=== PATIENT | male | born 1970 | race Caucasian/White ===

== ENCOUNTER 2021-08-17 06:52 | Inpatient (IN) ==
[~2021-08-17 06:52] MED LIST: ALVIMOPAN 12 MG CAPSULE PO ONE; ERTAPENEM 1,000 MG in SODIUM CHLORIDE 0.9% 100 ML IV ONE
[2021-08-17] MEDS ORDERED: FAMOTIDINE 20 MG TABLET PO ONE (07:32)
[2021-08-17] MEDS ORDERED: ACETAMINOPHEN 500 MG TABLET PO ONE (07:32)
[2021-08-17] MEDS ORDERED: GABAPENTIN 400 MG CAPSULE PO ONE (07:32)
[2021-08-17] MEDS ORDERED: DIAZEPAM 5 MG TABLET PO ONE (07:32)
[2021-08-17] MEDS ORDERED: LACTATED RINGERS 1,000 ML IV SCH (08:00)
[2021-08-17] MEDS ORDERED: fentaNYL 100 MCG/2 ML VIAL ONE ×3 (08:43→12:29)
[2021-08-17] MEDS ORDERED: MIDAZOLAM 2 MG/2 ML VIAL ONE ×3 (08:44→14:03)
[2021-08-17] MEDS ORDERED: SUCCINYLCHOLINE 200 MG/10 ML VIAL ONE (08:51)
[2021-08-17] MEDS ORDERED: ROCURONIUM 50 MG/5 ML VIAL IV ONE (08:51)
[2021-08-17] MEDS ORDERED: ONDANSETRON 4 MG/2 ML VIAL ONE (08:51)
[2021-08-17] MEDS ORDERED: propofoL 200 MG/20 ML VIAL IV ONE (08:51)
[2021-08-17] MEDS ORDERED: LIDOCAINE 2% 5 ML VIAL ONE (08:51)
[2021-08-17] MEDS ORDERED: BUPIVACAINE 0.5% 50 ML VIAL ONE (08:54)
[2021-08-17] MEDS ORDERED: DEXAMETHASONE 10 MG/1 ML VIAL ONE (08:54)
[2021-08-17] MEDS ORDERED: LIDOCAINE 1% 5 ML VIAL ONE (08:58)
[2021-08-17] MEDS ORDERED: BUPIVACAINE MPF 0.25% 10 ML VIAL ONE (09:25)
[2021-08-17] MEDS ORDERED: LIDOCAINE 1%/EPI INJ 20 ML VIAL ONE (09:26)
[2021-08-17] MEDS ORDERED: INDOCYANINE GREEN 25 MG VIAL IV ONE (09:26)
[2021-08-17] MEDS ORDERED: TISSUE ADHESIVE 1 EACH APPLICATOR TOP ONE (09:26)
[2021-08-17] MEDS ORDERED: LIDOCAINE 2% TOP JELLY 20 ML VIAL INTRAURETH ONE (09:26)
[2021-08-17] MEDS ORDERED: DESFLURANE 1 UNIT/15 MINUTE INH ONE (11:41)
[2021-08-17] MEDS ORDERED: LACTATED RINGERS 0 ML IV ONE (11:44)
[2021-08-17] MEDS ORDERED: PHENYLEPHRINE 1 MG/10 ML SYRINGE IV ONE (12:46)
[2021-08-17] MEDS ORDERED: PHENYLEPHRINE 10 MG/1 ML VIAL IV ONE (12:58)
[2021-08-17] MEDS ORDERED: SODIUM CHLORIDE 0.9% 1,000 ML IV PRN ×3 (13:21→15:22)
[2021-08-17] MEDS ORDERED: MINERAL OIL/PETROLATUM OPH OINT 3.5 GM TUBE ONE (14:08)
[2021-08-17] MEDS ORDERED: LACTATED RINGERS 1,000 ML IV ONE (14:21)
[2021-08-17] MEDS ORDERED: ONDANSETRON 4 MG/2 ML VIAL IV PRN (14:46)
[2021-08-17] MEDS ORDERED: PROMETHAZINE 25 MG/1 ML VIAL IM PRN (14:46)
[2021-08-17 14:54] LABS: Basophils # 0.2 10*3/uL (0.0-0.2); Basophils % 0.4 % (0.0-0.8); Eosinophils # 0.2 10*3/uL (0.0-0.87); Eosinophils % 0.4 % (0.00-10.9); Hematocrit 32.4 VOL% (42.0-52.0); Hemoglobin 9.9 GM/DL (14.0-18.0); Immature Granulocytes % 4.2 %; Immature Granulocytes Absolute 2.09 #; Lymphocytes # 2.6 10*3/uL (1.4-4.0); Lymphocytes % 5.1 % (21.2-54.2); Mean Corpuscular HGB Conc 30.6 GM/DL (32-36); Mean Corpuscular Volume 81.4 FL (87-102); Mean Platelet Volume 10.4 FL (9.6-12.0); Monocytes # 1.6 10*3/uL (0.11-0.8); Monocytes % 3.2 % (1.7-12.7); NRBC # 0.02 10*3/uL; Neutrophils % 86.7 % (38.7-73.9); Platelet Count 243 T/CUMM (130-400); Red Blood Count 3.98 MC/CUMM (3.8-5.5); Red Cell Distribution Width 23.9 % (9.3-17.3)
[2021-08-17 15:15] LABS: Bilirubin,Urine Negative (Negative); Blood, Urine Large mg/dL (Negative); Glucose,Urine (UA) >=1000 mg/dL (Negative); Ketones,Urine Negative (Negative); Nitrite,Urine Negative (Negative); Protein,Urine Negative (Negative); Urine Appearance Clear (Clear); Urine Color Yellow (Yellow); Urine Specific Gravity 1.015 (1.001-1.035); Urine Urobilinogen 0.2 eU/dL (<2.0); Urine pH 6.5 (4.5-8.0)
[2021-08-17 15:22] LABS: RBC,Urine 84 /HPF (0-4); Squamous Epithelial Cell,Urine Occasional /HPF (0-10)
[2021-08-17 15:32] LABS: ABG Base Excess -7.3 MMOL/L (-2.5-2.5); ABG HCO3 18.5 MMOL/L (20-26); ABG Oxygen Saturation 99.3 % (95-100); ABG PCO2 41.4 MM HG (35-48); ABG PH 7.275 (7.35-7.45); ABG TCO2 17.7 MMOL/L (23-27)
[2021-08-17 15:32] LABS: Calcium 7.7 MG/DL (8.5-10.1); Osmolality,Calculated 284.1 MOS/KG (273-304); Potassium 5.8 MMOL/L (3.5-5.1)
[2021-08-17] MEDS: LACTATED RINGERS 1,000 ML IV SCH ×2 (15:34→23:18)
[2021-08-17] MEDS: HYDROmorphone 1 MG/1 ML SYRINGE IV PRN ×2 (15:36→19:35)
[2021-08-17] MEDS ORDERED: GLUCAGON 1 MG VIAL IM PRN (15:41)
[2021-08-17] MEDS ORDERED: DEXTROSE 10% 250 ML BAG IV PRN (15:41)
[2021-08-17 15:50] LABS: INR 1.2; PT Patient Result 12.9 SECS (10.5-12.0); Partial Thromboplastin Time 25.8 SECS (23.7-32.9)
[2021-08-17] MEDS ORDERED: NOREPINEPHRINE 8 MG in SODIUM CHLORIDE 0.9% 242 ML IV PRN (15:51)
[2021-08-17 16:12] LABS: Anisocytosis 1+; Band Neutrophils 13 % (0-10); Eosinophils 1 % (0-10)
[2021-08-17 16:13] LABS: Polychromasia Slight
[2021-08-17 16:14] LABS: Hypochromia Slight; Ovalocytes Slight
[2021-08-17 16:15] LABS: Microcytosis 1+
[2021-08-17 16:16] LABS: Platelet Estimate Normal
[2021-08-17 16:17] LABS: Total Cells Counted 100
[2021-08-17 18:57] LABS: Basophils # 0.1 10*3/uL (0.0-0.2); Basophils % 0.2 % (0.0-0.8); Hematocrit 35.2 VOL% (42.0-52.0); Immature Granulocytes % 2.3 %; Immature Granulocytes Absolute 1.12 #; Lymphocytes # 0.8 10*3/uL (1.4-4.0); Lymphocytes % 1.7 % (21.2-54.2); Mean Corpuscular HGB Conc 31.3 GM/DL (32-36); Monocytes # 4.3 10*3/uL (0.11-0.8); Monocytes % 8.8 % (1.7-12.7); Platelet Count 284 T/CUMM (130-400); Red Cell Distribution Width 22.5 % (9.3-17.3)
[2021-08-17 18:59] LABS: White Blood Count 48.2 T/CUMM (4-12)
[2021-08-17] MEDS: INSULIN LISPRO 100 UNIT/ML SUBCUT SCH ×2 (19:10→22:59)
[2021-08-17 19:20] LABS: Band Neutrophils 8 % (0-10)
[2021-08-17 19:24] LABS: Platelet Estimate Increased; Polychromasia Few
[2021-08-17 19:25] LABS: Hypochromia Slight; Ovalocytes Slight
[2021-08-17 19:26] LABS: Total Cells Counted 100
[2021-08-17 22:57] LABS: Basophils % 0.1 % (0.0-0.8); Hematocrit 34.6 VOL% (42.0-52.0); Immature Granulocytes % 1.3 %; Immature Granulocytes Absolute 0.36 #; Lymphocytes # 0.6 10*3/uL (1.4-4.0); Lymphocytes % 2.3 % (21.2-54.2); Mean Corpuscular HGB Conc 31.8 GM/DL (32-36); Mean Corpuscular Volume 79.2 FL (87-102); Mean Platelet Volume 9.9 FL (9.6-12.0); Monocytes # 2.3 10*3/uL (0.11-0.8); Neutrophils % 88.3 % (38.7-73.9); Platelet Count 169 T/CUMM (130-400); Red Blood Count 4.37 MC/CUMM (3.8-5.5); Red Cell Distribution Width 21.1 % (9.3-17.3); White Blood Count 28.4 T/CUMM (4-12)
[2021-08-17 23:18] LABS: Total Cells Counted 100
[2021-08-17 23:19] LABS: Anisocytosis Slight; Platelet Estimate Adequate
[2021-08-18] MEDS: INSULIN LISPRO 100 UNIT/ML SUBCUT SCH ×6 (01:15→20:17)
[2021-08-18] MEDS: HYDROmorphone 1 MG/1 ML SYRINGE IV PRN ×3 (03:40→17:00)
[2021-08-18 04:08] LABS: Basophils % 0.1 % (0.0-0.8); Hemoglobin 10.5 GM/DL (14.0-18.0); Immature Granulocytes Absolute 0.21 #; Lymphocytes # 0.8 10*3/uL (1.4-4.0); Lymphocytes % 3.9 % (21.2-54.2); Mean Corpuscular HGB Conc 31.8 GM/DL (32-36); Mean Corpuscular Volume 79.1 FL (87-102); Mean Platelet Volume 9.9 FL (9.6-12.0); Monocytes # 2.2 10*3/uL (0.11-0.8); Monocytes % 10.8 % (1.7-12.7); Neutrophils % 84.2 % (38.7-73.9); Platelet Count 148 T/CUMM (130-400); Red Blood Count 4.17 MC/CUMM (3.8-5.5); Red Cell Distribution Width 21.3 % (9.3-17.3); White Blood Count 20.5 T/CUMM (4-12)
[2021-08-18 04:12] LABS: ABG Base Excess -1.3 MMOL/L (-2.5-2.5); ABG HCO3 23.4 MMOL/L (20-26); ABG Oxygen Saturation 99.7 % (95-100); ABG PCO2 42.3 MM HG (35-48); ABG PH 7.364 (7.35-7.45); ABG TCO2 21.9 MMOL/L (23-27)
[2021-08-18 04:25] LABS: Albumin 2.5 G/DL (3.4-5.0); Bilirubin,Total 0.9 MG/DL (0.20-1.00); Calcium 7.4 MG/DL (8.5-10.1); Osmolality,Calculated 293.1 MOS/KG (273-304); Total Protein 6.3 G/DL (6.4-8.2)
[2021-08-18 04:26] LABS: Anisocytosis 1+; Hypochromia 1+; Lymphocytes 4 % (20-55); Microcytosis 1+; Nucleated Red Blood Cells 1 (0-5); Total Cells Counted 100
[2021-08-18 04:27] LABS: Platelet Estimate Adequate; Polychromasia Slight
[2021-08-18] MEDS: PANTOPRAZOLE 40 MG VIAL IV SCH (05:20)
[2021-08-18] MEDS: LACTATED RINGERS 1,000 ML IV SCH ×2 (07:16→07:18)
[2021-08-18] MEDS: ESCITALOPRAM 10 MG TABLET PO SCH ×2 (08:41→13:28)
[2021-08-18] MEDS: INSULIN GLARGINE 100 UNIT/ML SUBCUT SCH (08:42)
[2021-08-18] MEDS ORDERED: LACTATED RINGERS 1,000 ML IV SCH (15:00)
[2021-08-19] MEDS: HYDROmorphone 1 MG/1 ML SYRINGE IV PRN ×4 (02:44→21:38)
[2021-08-19] MEDS: PANTOPRAZOLE 40 MG VIAL IV SCH (05:55)
[2021-08-19 06:49] LABS: Basophils % 0.1 % (0.0-0.8); Eosinophils % 0.1 % (0.00-10.9); Hematocrit 27.8 VOL% (42.0-52.0); Hemoglobin 8.8 GM/DL (14.0-18.0); Immature Granulocytes Absolute 0.14 #; Lymphocytes % 7.3 % (21.2-54.2); Mean Corpuscular HGB Conc 31.7 GM/DL (32-36); Mean Corpuscular Volume 79.9 FL (87-102); Mean Platelet Volume 10.2 FL (9.6-12.0); Monocytes # 1.2 10*3/uL (0.11-0.8); Neutrophils % 82.5 % (38.7-73.9); Red Blood Count 3.48 MC/CUMM (3.8-5.5); Red Cell Distribution Width 21.4 % (9.3-17.3)
[2021-08-19 06:53] LABS: White Blood Count 13.6 T/CUMM (4-12)
[2021-08-19 06:54] LABS: Platelet Count 105 T/CUMM (130-400)
[2021-08-19 07:04] LABS: Albumin 2.4 G/DL (3.4-5.0); Osmolality,Calculated 282.5 MOS/KG (273-304); Potassium 4.1 MMOL/L (3.5-5.1); Total Protein 5.8 G/DL (6.4-8.2)
[2021-08-19] MEDS: INSULIN LISPRO 100 UNIT/ML SUBCUT SCH ×4 (08:30→21:37)
[2021-08-19] MEDS: INSULIN GLARGINE 100 UNIT/ML SUBCUT SCH (08:42)
[2021-08-19] MEDS: FAMOTIDINE 8 MG/ML 50 ML/BOTTLE PO SCH ×2 (08:42→21:37)
[2021-08-19] MEDS: ESCITALOPRAM 10 MG TABLET PO SCH (08:42)
[2021-08-19] MEDS: TAMSULOSIN 0.4 MG CAPSULE PO SCH (21:36)
[2021-08-20] MEDS: HYDROmorphone 1 MG/1 ML SYRINGE IV PRN ×6 (00:40→21:24)
[2021-08-20 04:41] LABS: Basophils % 0.3 % (0.0-0.8); Eosinophils # 0.1 10*3/uL (0.0-0.87); Eosinophils % 0.8 % (0.00-10.9); Hematocrit 27.8 VOL% (42.0-52.0); Hemoglobin 8.5 GM/DL (14.0-18.0); Immature Granulocytes Absolute 0.12 #; Lymphocytes # 0.9 10*3/uL (1.4-4.0); Lymphocytes % 7.9 % (21.2-54.2); Mean Corpuscular HGB Conc 30.6 GM/DL (32-36); Mean Corpuscular Volume 81.3 FL (87-102); Mean Platelet Volume 9.8 FL (9.6-12.0); Monocytes % 8.8 % (1.7-12.7); Neutrophils % 81.2 % (38.7-73.9); Platelet Count 96 T/CUMM (130-400); Red Blood Count 3.42 MC/CUMM (3.8-5.5); Red Cell Distribution Width 21.1 % (9.3-17.3); White Blood Count 11.6 T/CUMM (4-12)
[2021-08-20 05:00] LABS: Albumin 2.5 G/DL (3.4-5.0); Bilirubin,Total 1.1 MG/DL (0.20-1.00); Calcium 7.4 MG/DL (8.5-10.1); Osmolality,Calculated 278.8 MOS/KG (273-304)
[2021-08-20 05:06] LABS: Platelet Estimate Decreased
[2021-08-20] MEDS: FAMOTIDINE 8 MG/ML 50 ML/BOTTLE PO SCH (08:38)
[2021-08-20] MEDS: INSULIN LISPRO 100 UNIT/ML SUBCUT SCH ×4 (08:39→22:35)
[2021-08-20] MEDS: ESCITALOPRAM 10 MG TABLET PO SCH (08:39)
[2021-08-20] MEDS: INSULIN GLARGINE 100 UNIT/ML SUBCUT SCH (08:39)
[2021-08-20] MEDS ORDERED: LIDOCAINE 2% TOP JELLY 20 ML VIAL INTRAURETH PRN (18:59)
[2021-08-20] MEDS: TAMSULOSIN 0.4 MG CAPSULE PO SCH (21:23)
[2021-08-20] MEDS: FAMOTIDINE 20 MG TABLET PO SCH (21:23)
[2021-08-21] MEDS: HYDROmorphone 1 MG/1 ML SYRINGE IV PRN (04:53)
[2021-08-21 05:32] LABS: Basophils % 0.2 % (0.0-0.8); Eosinophils # 0.1 10*3/uL (0.0-0.87); Eosinophils % 1.6 % (0.00-10.9); Hematocrit 27.2 VOL% (42.0-52.0); Hemoglobin 8.5 GM/DL (14.0-18.0); Immature Granulocytes % 1.2 %; Lymphocytes # 0.8 10*3/uL (1.4-4.0); Lymphocytes % 9.1 % (21.2-54.2); Mean Corpuscular HGB Conc 31.3 GM/DL (32-36); Mean Corpuscular Volume 80.5 FL (87-102); Mean Platelet Volume 10.3 FL (9.6-12.0); Monocytes # 0.8 10*3/uL (0.11-0.8); Monocytes % 8.8 % (1.7-12.7); Neutrophils % 79.1 % (38.7-73.9); Platelet Count 95 T/CUMM (130-400); Red Blood Count 3.38 MC/CUMM (3.8-5.5); Red Cell Distribution Width 21.1 % (9.3-17.3); White Blood Count 8.6 T/CUMM (4-12)
[2021-08-21 05:50] LABS: INR 1.1; PT Patient Result 12.1 SECS (10.5-12.0); Partial Thromboplastin Time 25.6 SECS (23.7-32.9)
[2021-08-21 05:55] LABS: Albumin 2.5 G/DL (3.4-5.0); Calcium 7.9 MG/DL (8.5-10.1); Osmolality,Calculated 277.7 MOS/KG (273-304); Potassium 3.7 MMOL/L (3.5-5.1)
[2021-08-21 08:04] VITALS: BP 138/69
[2021-08-21] MEDS: ESCITALOPRAM 10 MG TABLET PO SCH (08:36)
[2021-08-21] MEDS: FAMOTIDINE 20 MG TABLET PO SCH (08:36)
[2021-08-21] MEDS: INSULIN GLARGINE 100 UNIT/ML SUBCUT SCH (08:37)
[2021-08-21] MEDS: INSULIN LISPRO 100 UNIT/ML SUBCUT SCH ×2 (08:37→11:33)
== END 2021-08-21 12:32 | disposition home or self-care (01) | DRG 356 ==
LOC: N.SDSINP 06:52 → N.OR 06:52 → N.SDSINP 06:54 → N.ICU 14:13 → N.3E 08-19 15:50
PROVIDERS: ADMIT Surgery; ATTEND Surgery

== ENCOUNTER 2021-10-12 06:12 | Inpatient (IN) ==
[2021-10-07 12:59] LABS: INR 1.1; PT Patient Result 11.9 SECS (10.1-12.1)
[2021-10-07 13:08] LABS: Albumin 3.7 G/DL (3.4-5.0); Bilirubin,Direct 0.18 MG/DL (0.0-0.20); Bilirubin,Indirect 0.4 MG/DL (0.0-1.0); Bilirubin,Total 0.6 MG/DL (0.20-1.00); Calcium 9.2 MG/DL (8.5-10.1); Osmolality,Calculated 284.4 MOS/KG (273-304); Potassium 4.3 MMOL/L (3.5-5.1); Total Protein 7.9 G/DL (6.4-8.2)
[2021-10-07 13:10] LABS: Basophils % 0.3 % (0.0-0.8); Eosinophils # 0.2 10*3/uL (0.0-0.87); Eosinophils % 4.9 % (0.00-10.9); Hematocrit 31.2 VOL% (42.0-52.0); Hemoglobin 8.8 GM/DL (14.0-18.0); Immature Granulocytes % 0.3 %; Immature Granulocytes Absolute 0.01 #; Lymphocytes # 0.6 10*3/uL (1.4-4.0); Lymphocytes % 18.5 % (21.2-54.2); Mean Corpuscular HGB Conc 28.2 GM/DL (32-36); Mean Corpuscular Volume 72.2 FL (87-102); Mean Platelet Volume 10.9 FL (9.6-12.0); Monocytes # 0.3 10*3/uL (0.11-0.8); Monocytes % 9.9 % (1.7-12.7); Neutrophils % 66.1 % (38.7-73.9); Platelet Count 141 T/CUMM (130-400); Red Blood Count 4.32 MC/CUMM (3.8-5.5); Red Cell Distribution Width 18.1 % (9.3-17.3); White Blood Count 3.2 T/CUMM (4-12)
[2021-10-12] MEDS ORDERED: LACTATED RINGERS 1,000 ML IV SCH (07:00)
[2021-10-12] MEDS ORDERED: ACETAMINOPHEN 500 MG TABLET PO ONE (07:12)
[2021-10-12] MEDS ORDERED: FAMOTIDINE 20 MG TABLET PO ONE (07:12)
[2021-10-12] MEDS ORDERED: DIAZEPAM 5 MG TABLET PO ONE (07:12)
[2021-10-12] MEDS ORDERED: GABAPENTIN 400 MG CAPSULE PO ONE (07:12)
[2021-10-12] MEDS ORDERED: DEXAMETHASONE 4 MG/1 ML VIAL ONE (09:21)
[2021-10-12] MEDS ORDERED: MIDAZOLAM 2 MG/2 ML VIAL ONE (09:21)
[2021-10-12] MEDS ORDERED: fentaNYL 100 MCG/2 ML VIAL ONE ×6 (09:21→14:11)
[2021-10-12] MEDS ORDERED: ROPIVACAINE 0.5% 30 ML VIAL ONE (09:22)
[2021-10-12] MEDS ORDERED: LIDOCAINE 1% 5 ML VIAL ONE (09:22)
[2021-10-12] MEDS ORDERED: ALBUMIN 5% 25.0 GM/500 ML VIAL IV ONE (09:47)
[2021-10-12] MEDS ORDERED: propofoL 200 MG/20 ML VIAL IV ONE (09:52)
[2021-10-12] MEDS ORDERED: SUCCINYLCHOLINE 200 MG/10 ML VIAL ONE (09:52)
[2021-10-12] MEDS ORDERED: ROCURONIUM 50 MG/5 ML VIAL IV ONE ×3 (09:52→13:23)
[2021-10-12] MEDS ORDERED: LIDOCAINE 2% 5 ML VIAL ONE (09:52)
[2021-10-12] MEDS ORDERED: SODIUM CHLORIDE 0.9% 1,000 ML IV PRN (10:39)
[2021-10-12] MEDS ORDERED: PHENYLEPHRINE 1 MG/10 ML SYRINGE IV ONE (11:37)
[2021-10-12] MEDS ORDERED: SODIUM CHLORIDE 0.9% 1,000 ML IV ONE (11:40)
[2021-10-12] MEDS ORDERED: LACTATED RINGERS 1,000 ML IV ONE (11:40)
[2021-10-12] MEDS ORDERED: NEOSTIGMINE 10 MG/10 ML VIAL ONE (11:51)
[2021-10-12] MEDS ORDERED: GLYCOPYRROLATE 0.4 MG/2 ML VIAL ONE (11:51)
[2021-10-12] MEDS ORDERED: ONDANSETRON 4 MG/2 ML VIAL ONE ×2 (11:53→15:29)
[2021-10-12] MEDS ORDERED: PNEUMOCOCCAL VACCINE (23 VALENT) 0.5 ML VIAL IM ONE (12:58)
[2021-10-12] MEDS ORDERED: PHENYLEPHRINE DRIP 20 MG/250 ML PREMIX IV ONE (13:03)
[2021-10-12] MEDS ORDERED: ACETAMINOPHEN INJ 1,000 MG/100 ML VIAL IV ONE (14:00)
[2021-10-12] MEDS ORDERED: SUGAMMADEX 200 MG/2 ML VIAL IV ONE (14:06)
[2021-10-12 14:13] LABS: Mucus,Urine Occasional /LPF (Occasional); RBC,Urine 2 /HPF (0-4); Squamous Epithelial Cell,Urine Occasional /HPF (0-10)
[2021-10-12 14:14] LABS: Urine Appearance Clear (Clear); Urine Color Yellow (Yellow)
[2021-10-12 14:15] LABS: Bilirubin,Urine Negative (Negative); Blood, Urine Negative (Negative); Glucose,Urine (UA) >=1000 mg/dL (Negative); Ketones,Urine Negative (Negative); Nitrite,Urine Negative (Negative); Protein,Urine Trace mg/dL (Negative); Urine Specific Gravity 1.015 (1.001-1.035); Urine Urobilinogen 0.2 eU/dL (<2.0)
[2021-10-12] MEDS ORDERED: HYDROmorphone 1 MG/1 ML SYRINGE ONE (15:29)
[2021-10-12] MEDS ORDERED: LABETALOL 20 MG/4 ML SYRINGE IV ONE (15:29)
[2021-10-12] MEDS: HYDROmorphone 1 MG/1 ML SYRINGE IV PRN ×2 (15:31→16:16)
[2021-10-12] MEDS ORDERED: ONDANSETRON 4 MG/2 ML VIAL IV PRN ×2 (15:34→17:00)
[2021-10-12] MEDS ORDERED: ONDANSETRON 4 MG TABLET PO PRN (17:00)
[2021-10-12] MEDS ORDERED: PROMETHAZINE 25 MG TABLET PO PRN (17:00)
[2021-10-12] MEDS ORDERED: PROMETHAZINE 25 MG/1 ML VIAL IM PRN (17:00)
[2021-10-12] MEDS ORDERED: GLUCAGON 1 MG VIAL IM PRN (17:00)
[2021-10-12] MEDS ORDERED: DEXTROSE 10% 250 ML BAG IV PRN (17:08)
[2021-10-12] MEDS: INSULIN REGULAR 100 UNIT/ML SUBCUT SCH ×2 (17:13→21:19)
[2021-10-12] MEDS: KETOROLAC 15 MG/1 ML VIAL IV SCH ×2 (17:45→23:40)
[2021-10-12 18:11] LABS: Albumin 3.2 G/DL (3.4-5.0); Calcium 7.8 MG/DL (8.5-10.1); Osmolality,Calculated 283.7 MOS/KG (273-304); Potassium 5.3 MMOL/L (3.5-5.1); Total Protein 7.2 G/DL (6.4-8.2)
[2021-10-12 18:15] LABS: Basophils % 0.1 % (0.0-0.8); Eosinophils % 0.1 % (0.00-10.9); Hematocrit 29.6 VOL% (42.0-52.0); Immature Granulocytes % 0.4 %; Immature Granulocytes Absolute 0.03 #; Lymphocytes # 0.3 10*3/uL (1.4-4.0); Lymphocytes % 3.9 % (21.2-54.2); Mean Platelet Volume 10.2 FL (9.6-12.0); Monocytes # 0.5 10*3/uL (0.11-0.8); Monocytes % 6.4 % (1.7-12.7); Neutrophils % 89.1 % (38.7-73.9); Platelet Count 158 T/CUMM (130-400); Red Blood Count 4.11 MC/CUMM (3.8-5.5); Red Cell Distribution Width 18.1 % (9.3-17.3); White Blood Count 8.1 T/CUMM (4-12)
[2021-10-12 18:20] LABS: Hemoglobin 8.3 GM/DL (14.0-18.0)
[2021-10-12 19:33] LABS: Band Neutrophils 2 % (0-10); Lymphocytes 2 % (20-55); Platelet Estimate Adequate; Total Cells Counted 100
[2021-10-12 19:34] LABS: Microcytosis Slight; Polychromasia Slight
[2021-10-12] MEDS ORDERED: ALVIMOPAN 12 MG CAPSULE PO SCH (21:00)
[2021-10-12] MEDS: DOCUSATE SODIUM 100 MG CAPSULE PO SCH (21:18)
[2021-10-12] MEDS: LACTATED RINGERS 1,000 ML IV SCH (21:18)
[2021-10-13 04:42] LABS: Basophils % 0.1 % (0.0-0.8); Hemoglobin 7.4 GM/DL (14.0-18.0); Immature Granulocytes % 0.3 %; Immature Granulocytes Absolute 0.03 #; Lymphocytes # 0.6 10*3/uL (1.4-4.0); Lymphocytes % 6.5 % (21.2-54.2); Mean Corpuscular HGB Conc 27.7 GM/DL (32-36); Mean Platelet Volume 10.2 FL (9.6-12.0); Monocytes % 10.7 % (1.7-12.7); Neutrophils % 82.4 % (38.7-73.9); Platelet Count 145 T/CUMM (130-400); Red Blood Count 3.61 MC/CUMM (3.8-5.5); White Blood Count 9.5 T/CUMM (4-12)
[2021-10-13 05:04] LABS: Albumin 2.8 G/DL (3.4-5.0); Bilirubin,Total 0.9 MG/DL (0.20-1.00); Calcium 7.6 MG/DL (8.5-10.1); Osmolality,Calculated 285.5 MOS/KG (273-304); Potassium 4.1 MMOL/L (3.5-5.1); Total Protein 6.5 G/DL (6.4-8.2)
[2021-10-13] MEDS: LACTATED RINGERS 1,000 ML IV SCH (05:16)
[2021-10-13] MEDS: KETOROLAC 15 MG/1 ML VIAL IV SCH ×4 (05:16→23:35)
[2021-10-13 05:17] LABS: Hypochromia Slight; Microcytosis Slight
[2021-10-13 05:27] LABS: Hematocrit 26.7 VOL% (42.0-52.0)
[2021-10-13] MEDS: DOCUSATE SODIUM 100 MG CAPSULE PO SCH ×2 (10:17→22:15)
[2021-10-13] MEDS: ESCITALOPRAM 10 MG TABLET PO SCH (10:17)
[2021-10-13] MEDS: INSULIN REGULAR 100 UNIT/ML SUBCUT SCH ×4 (10:17→22:15)
[2021-10-13] MEDS: ENOXAPARIN 40 MG/0.4 ML SYRINGE SUBCUT SCH (10:18)
[2021-10-13] MEDS: HYDROmorphone 1 MG/1 ML SYRINGE IV PRN (15:33)
[2021-10-14] MEDS: KETOROLAC 15 MG/1 ML VIAL IV SCH ×3 (04:28→16:47)
[2021-10-14 05:23] LABS: Albumin 2.8 G/DL (3.4-5.0); Potassium 3.9 MMOL/L (3.5-5.1); Total Protein 6.5 G/DL (6.4-8.2)
[2021-10-14 05:31] LABS: Basophils % 0.1 % (0.0-0.8); Eosinophils # 0.1 10*3/uL (0.0-0.87); Eosinophils % 2.1 % (0.00-10.9); Hemoglobin 7.5 GM/DL (14.0-18.0); Immature Granulocytes % 0.3 %; Immature Granulocytes Absolute 0.02 #; Lymphocytes # 0.5 10*3/uL (1.4-4.0); Lymphocytes % 6.8 % (21.2-54.2); Mean Corpuscular HGB Conc 27.6 GM/DL (32-36); Mean Corpuscular Volume 72.3 FL (87-102); Monocytes # 0.7 10*3/uL (0.11-0.8); Neutrophils % 80.7 % (38.7-73.9); Platelet Count 121 T/CUMM (130-400); Red Blood Count 3.76 MC/CUMM (3.8-5.5); Red Cell Distribution Width 18.4 % (9.3-17.3); White Blood Count 6.8 T/CUMM (4-12)
[2021-10-14 05:32] LABS: Hematocrit 27.2 VOL% (42.0-52.0)
[2021-10-14 05:47] LABS: Hypochromia 1+
[2021-10-14 05:48] LABS: Microcytosis 1+; Ovalocytes Slight; Platelet Estimate Adequate; Polychromasia Slight
[2021-10-14] MEDS: HYDROmorphone 1 MG/1 ML SYRINGE IV PRN (07:53)
[2021-10-14] MEDS: ESCITALOPRAM 10 MG TABLET PO SCH (08:32)
[2021-10-14] MEDS: DOCUSATE SODIUM 100 MG CAPSULE PO SCH ×2 (08:32→21:31)
[2021-10-14] MEDS: INSULIN REGULAR 100 UNIT/ML SUBCUT SCH ×4 (08:35→21:32)
[2021-10-14] MEDS: ENOXAPARIN 40 MG/0.4 ML SYRINGE SUBCUT SCH (08:36)
[2021-10-15] MEDS: KETOROLAC 15 MG/1 ML VIAL IV SCH ×3 (00:06→10:22)
[2021-10-15] MEDS: TAMSULOSIN 0.4 MG CAPSULE PO SCH ×2 (10:28→20:30)
[2021-10-15] MEDS: ESCITALOPRAM 10 MG TABLET PO SCH (10:29)
[2021-10-15] MEDS: DOCUSATE SODIUM 100 MG CAPSULE PO SCH ×2 (10:29→20:30)
[2021-10-15] MEDS: ENOXAPARIN 40 MG/0.4 ML SYRINGE SUBCUT SCH (10:30)
[2021-10-15] MEDS: INSULIN REGULAR 100 UNIT/ML SUBCUT SCH ×4 (10:33→20:34)
[2021-10-15 16:44] LABS: RBC,Urine 1 /HPF (0-4); Squamous Epithelial Cell,Urine Occasional /HPF (0-10)
[2021-10-15 16:47] LABS: Glucose,Urine (UA) 100 mg/dL (Negative); Ketones,Urine Trace mg/dL (Negative); Nitrite,Urine Negative (Negative); Protein,Urine Negative (Negative); Urine Appearance Clear (Clear); Urine Color Yellow (Yellow)
[2021-10-15 16:48] LABS: Bilirubin,Urine Negative (Negative); Blood, Urine Trace mg/dL (Negative)
[2021-10-15] MEDS: HYDROmorphone 1 MG/1 ML SYRINGE IV PRN (20:45)
[2021-10-16] MEDS: HYDROmorphone 1 MG/1 ML SYRINGE IV PRN (07:50)
[2021-10-16] MEDS: INSULIN REGULAR 100 UNIT/ML SUBCUT SCH (08:33)
[2021-10-16] MEDS: TAMSULOSIN 0.4 MG CAPSULE PO SCH (09:23)
[2021-10-16] MEDS: DOCUSATE SODIUM 100 MG CAPSULE PO SCH (09:23)
[2021-10-16] MEDS: ESCITALOPRAM 10 MG TABLET PO SCH (09:23)
[2021-10-16] MEDS: ENOXAPARIN 40 MG/0.4 ML SYRINGE SUBCUT SCH (09:24)
[2021-10-16 11:42] VITALS: BP 117/59
== END 2021-10-16 12:40 | disposition home health service (06) | DRG 330 ==
LOC: N.OR 06:12 → N.SDSINP 06:13 → N.TELES 14:41
PROVIDERS: ADMIT Surgery; ATTEND Surgery

== ENCOUNTER 2021-10-19 09:26 | Inpatient (IN) ==
[2021-10-19] MEDS ORDERED: ONDANSETRON 4 MG/2 ML VIAL IV STA (09:44)
[2021-10-19] MEDS ORDERED: HYDROmorphone 1 MG/1 ML SYRINGE IV STA (09:44)
[2021-10-19] MEDS ORDERED: SODIUM CHLORIDE 0.9% 1,000 ML IV STA (09:44)
[2021-10-19] MEDS ORDERED: PIPERACILLIN/TAZOBACTAM 3,375 MG in SODIUM CHLORIDE 0.9% 100 ML IV STA (09:48)
[2021-10-19] MEDS ORDERED: SODIUM CHLORIDE 0.9% 3,550 ML IV ONE (10:33)
[2021-10-19 10:35] LABS: Albumin 2.4 G/DL (3.4-5.0); Bilirubin,Total 1.1 MG/DL (0.20-1.00); Calcium 7.9 MG/DL (8.5-10.1); Osmolality,Calculated 274.2 MOS/KG (273-304); Potassium 3.6 MMOL/L (3.5-5.1); Total Protein 6.7 G/DL (6.4-8.2)
[2021-10-19 10:39] LABS: Basophils % 0.2 % (0.0-0.8); Eosinophils # 0.1 10*3/uL (0.0-0.87); Eosinophils % 0.9 % (0.00-10.9); Hematocrit 29.8 VOL% (42.0-52.0); Hemoglobin 8.4 GM/DL (14.0-18.0); Immature Granulocytes % 0.7 %; Immature Granulocytes Absolute 0.06 #; Lymphocytes # 0.5 10*3/uL (1.4-4.0); Lymphocytes % 6.2 % (21.2-54.2); Mean Corpuscular HGB Conc 28.2 GM/DL (32-36); Mean Corpuscular Volume 69.8 FL (87-102); Mean Platelet Volume 10.8 FL (9.6-12.0); Monocytes # 0.5 10*3/uL (0.11-0.8); Monocytes % 6.1 % (1.7-12.7); NRBC # 0.03 10*3/uL; Neutrophils % 85.9 % (38.7-73.9); Platelet Count 223 T/CUMM (130-400); Red Blood Count 4.27 MC/CUMM (3.8-5.5); Red Cell Distribution Width 18.9 % (9.3-17.3); White Blood Count 8.6 T/CUMM (4-12)
[2021-10-19] MEDS ORDERED: ACETAMINOPHEN 325 MG TABLET PO PRN (11:23)
[2021-10-19] MEDS ORDERED: ALBUTEROL/IPRATROPIUM 3 ML NEB RESP TX PRN (11:23)
[2021-10-19] MEDS ORDERED: GLUCAGON 1 MG VIAL IM PRN (11:32)
[2021-10-19 11:36] LABS: Platelet Estimate Normal
[2021-10-19 11:37] LABS: Anisocytosis 1+; Burr Cells Few; Hypochromia Slight
[2021-10-19] MEDS ORDERED: DEXTROSE 10% 250 ML BAG IV PRN (11:37)
[2021-10-19 11:51] LABS: INR 1.2; PT Patient Result 13.3 SECS (10.1-12.1); Partial Thromboplastin Time 26.4 SECS (23.7-32.9)
[2021-10-19] MEDS: HYDROmorphone 1 MG/1 ML SYRINGE IV PRN ×2 (15:08→21:17)
[2021-10-19] MEDS: LACTATED RINGERS 1,000 ML IV SCH ×2 (16:43→16:44)
[2021-10-19] MEDS: PIPERACILLIN/TAZOBACTAM 3,375 MG in SODIUM CHLORIDE 0.9% 100 ML IV SCH ×2 (16:44→21:17)
[2021-10-19] MEDS: INSULIN LISPRO 100 UNIT/ML SUBCUT SCH ×2 (17:03→21:17)
[2021-10-19] MEDS: TAMSULOSIN 0.4 MG CAPSULE PO SCH (21:11)
[2021-10-20] MEDS: KETOROLAC 30 MG/1 ML VIAL IV PRN (02:34)
[2021-10-20] MEDS: PIPERACILLIN/TAZOBACTAM 3,375 MG in SODIUM CHLORIDE 0.9% 100 ML IV SCH ×3 (03:25→22:52)
[2021-10-20 07:20] LABS: Albumin 2.1 G/DL (3.4-5.0); Bilirubin,Total 1.1 MG/DL (0.20-1.00); Calcium 7.9 MG/DL (8.5-10.1); Osmolality,Calculated 269.4 MOS/KG (273-304); Potassium 4.1 MMOL/L (3.5-5.1)
[2021-10-20 07:25] LABS: Basophils % 0.2 % (0.0-0.8); Eosinophils # 0.1 10*3/uL (0.0-0.87); Eosinophils % 0.9 % (0.00-10.9); Hematocrit 26.5 VOL% (42.0-52.0); Immature Granulocytes % 1.6 %; Immature Granulocytes Absolute 0.25 #; Lymphocytes # 0.8 10*3/uL (1.4-4.0); Lymphocytes % 5.2 % (21.2-54.2); Mean Corpuscular HGB Conc 28.7 GM/DL (32-36); Mean Corpuscular Volume 69.4 FL (87-102); Mean Platelet Volume 10.7 FL (9.6-12.0); Monocytes # 1.2 10*3/uL (0.11-0.8); Monocytes % 8.1 % (1.7-12.7); NRBC # 0.02 10*3/uL; Platelet Count 185 T/CUMM (130-400); Red Blood Count 3.82 MC/CUMM (3.8-5.5); White Blood Count 15.2 T/CUMM (4-12)
[2021-10-20 07:28] LABS: Hemoglobin 7.6 GM/DL (14.0-18.0)
[2021-10-20 07:52] LABS: Hypochromia 2+; Microcytosis 1+
[2021-10-20 07:53] LABS: Ovalocytes Slight; Platelet Estimate Adequate; Polychromasia Slight
[2021-10-20] MEDS: INSULIN LISPRO 100 UNIT/ML SUBCUT SCH ×4 (08:25→21:43)
[2021-10-20] MEDS: ESCITALOPRAM 10 MG TABLET PO SCH (10:04)
[2021-10-20] MEDS: PANTOPRAZOLE 40 MG TABLET PO SCH (10:04)
[2021-10-20] MEDS: TAMSULOSIN 0.4 MG CAPSULE PO SCH ×2 (10:05→21:08)
[2021-10-20] MEDS: SODIUM CHLOR 0.9% KCL 20 MEQ 20 MEQ/1,000 ML BAG IV SCH (10:08)
[2021-10-20] MEDS: HYDROmorphone 1 MG/1 ML SYRINGE IV PRN ×3 (10:19→21:09)
[2021-10-20] MEDS: LACTATED RINGERS 1,000 ML IV SCH ×2 (12:45→12:47)
[2021-10-21] MEDS: KETOROLAC 30 MG/1 ML VIAL IV PRN (01:03)
[2021-10-21 01:31] LABS: Bacteria,Urine Occasional /HPF (Few); Bilirubin,Urine Negative (Negative); Blood, Urine Trace mg/dL (Negative); Glucose,Urine (UA) 100 mg/dL (Negative); Ketones,Urine Negative (Negative); Mucus,Urine Occasional /LPF (Occasional); Nitrite,Urine Negative (Negative); Protein,Urine Trace mg/dL (Negative); RBC,Urine 2 /HPF (0-4); Squamous Epithelial Cell,Urine Occasional /HPF (0-10); Urine Appearance Clear (Clear); Urine Color Yellow (Yellow); Urine Specific Gravity 1.025 (1.001-1.035)
[2021-10-21] MEDS: SODIUM CHLOR 0.9% KCL 20 MEQ 20 MEQ/1,000 ML BAG IV SCH ×4 (04:53→20:45)
[2021-10-21] MEDS: PIPERACILLIN/TAZOBACTAM 3,375 MG in SODIUM CHLORIDE 0.9% 100 ML IV SCH ×3 (04:54→20:42)
[2021-10-21] MEDS: HYDROmorphone 1 MG/1 ML SYRINGE IV PRN ×2 (05:43→20:39)
[2021-10-21 07:58] LABS: Bilirubin,Total 1.1 MG/DL (0.20-1.00); Osmolality,Calculated 268.4 MOS/KG (273-304); Potassium 4.1 MMOL/L (3.5-5.1); Total Protein 6.3 G/DL (6.4-8.2)
[2021-10-21 07:59] LABS: Basophils % 0.2 % (0.0-0.8); Eosinophils # 0.3 10*3/uL (0.0-0.87); Eosinophils % 1.7 % (0.00-10.9); Hematocrit 26.4 VOL% (42.0-52.0); Lymphocytes # 0.8 10*3/uL (1.4-4.0); Lymphocytes % 5.1 % (21.2-54.2); Mean Corpuscular HGB Conc 27.3 GM/DL (32-36); Mean Corpuscular Volume 71.7 FL (87-102); Mean Platelet Volume 10.5 FL (9.6-12.0); Monocytes % 6.4 % (1.7-12.7); Neutrophils % 84.6 % (38.7-73.9); Platelet Count 196 T/CUMM (130-400); Red Blood Count 3.68 MC/CUMM (3.8-5.5); White Blood Count 15.2 T/CUMM (4-12)
[2021-10-21 08:01] LABS: Hemoglobin 7.2 GM/DL (14.0-18.0)
[2021-10-21 08:15] LABS: Hypochromia 1+; Microcytosis 1+; Platelet Estimate Adequate
[2021-10-21] MEDS: PANTOPRAZOLE 40 MG TABLET PO SCH (09:07)
[2021-10-21] MEDS: TAMSULOSIN 0.4 MG CAPSULE PO SCH ×2 (09:07→20:42)
[2021-10-21] MEDS: ESCITALOPRAM 10 MG TABLET PO SCH (09:07)
[2021-10-21] MEDS: INSULIN LISPRO 100 UNIT/ML SUBCUT SCH ×4 (09:09→20:40)
[2021-10-21] MEDS ORDERED: KETOROLAC 15 MG/1 ML VIAL IV PRN (09:30)
[2021-10-21] MEDS: ONDANSETRON 4 MG/2 ML VIAL IV PRN (15:41)
[2021-10-22] MEDS: HYDROmorphone 1 MG/1 ML SYRINGE IV PRN ×3 (01:30→22:55)
[2021-10-22] MEDS: PIPERACILLIN/TAZOBACTAM 3,375 MG in SODIUM CHLORIDE 0.9% 100 ML IV SCH ×3 (04:37→21:04)
[2021-10-22 05:44] LABS: Anisocytosis 2+; Poikilocytosis 2+
[2021-10-22 05:45] LABS: Platelet Estimate Normal
[2021-10-22 05:49] LABS: Albumin 1.9 G/DL (3.4-5.0); Calcium 7.8 MG/DL (8.5-10.1); Osmolality,Calculated 271.1 MOS/KG (273-304); Potassium 4.3 MMOL/L (3.5-5.1); Total Protein 6.4 G/DL (6.4-8.2)
[2021-10-22 05:55] LABS: Basophils % 0.2 % (0.0-0.8); Eosinophils # 0.3 10*3/uL (0.0-0.87); Eosinophils % 2.4 % (0.00-10.9); Hemoglobin 7.3 GM/DL (14.0-18.0); Immature Granulocytes % 1.8 %; Immature Granulocytes Absolute 0.23 #; Lymphocytes # 0.9 10*3/uL (1.4-4.0); Lymphocytes % 6.6 % (21.2-54.2); Mean Corpuscular HGB Conc 27.5 GM/DL (32-36); Mean Corpuscular Volume 71.2 FL (87-102); Mean Platelet Volume 10.3 FL (9.6-12.0); Monocytes # 0.9 10*3/uL (0.11-0.8); Platelet Count 207 T/CUMM (130-400); Red Blood Count 3.72 MC/CUMM (3.8-5.5); Red Cell Distribution Width 19.2 % (9.3-17.3); White Blood Count 13.1 T/CUMM (4-12)
[2021-10-22 05:56] LABS: Hematocrit 26.5 VOL% (42.0-52.0)
[2021-10-22] MEDS: INSULIN LISPRO 100 UNIT/ML SUBCUT SCH ×4 (08:51→21:05)
[2021-10-22] MEDS: SODIUM CHLOR 0.9% KCL 20 MEQ 20 MEQ/1,000 ML BAG IV SCH ×3 (08:51→17:03)
[2021-10-22] MEDS: ESCITALOPRAM 10 MG TABLET PO SCH (09:22)
[2021-10-22] MEDS: PANTOPRAZOLE 40 MG TABLET PO SCH (09:22)
[2021-10-22] MEDS: TAMSULOSIN 0.4 MG CAPSULE PO SCH ×2 (09:22→21:05)
[2021-10-22] MEDS: ONDANSETRON 4 MG/2 ML VIAL IV PRN (15:21)
[2021-10-22] MEDS: POLYETHYLENE GLYCOL POWDER 17 GM PACK PO SCH (21:05)
[2021-10-23] MEDS: HYDROmorphone 1 MG/1 ML SYRINGE IV PRN ×6 (03:32→23:36)
[2021-10-23] MEDS: SODIUM CHLOR 0.9% KCL 20 MEQ 20 MEQ/1,000 ML BAG IV SCH ×3 (05:46→18:16)
[2021-10-23] MEDS: PIPERACILLIN/TAZOBACTAM 3,375 MG in SODIUM CHLORIDE 0.9% 100 ML IV SCH ×3 (05:47→22:02)
[2021-10-23] MEDS: TAMSULOSIN 0.4 MG CAPSULE PO SCH ×2 (08:23→22:02)
[2021-10-23] MEDS: ESCITALOPRAM 10 MG TABLET PO SCH (08:24)
[2021-10-23] MEDS: POLYETHYLENE GLYCOL POWDER 17 GM PACK PO SCH ×2 (08:24→22:02)
[2021-10-23] MEDS: PANTOPRAZOLE 40 MG TABLET PO SCH (08:24)
[2021-10-23] MEDS: INSULIN LISPRO 100 UNIT/ML SUBCUT SCH ×4 (08:45→22:02)
[2021-10-24] MEDS: HYDROmorphone 1 MG/1 ML SYRINGE IV PRN ×6 (03:55→23:31)
[2021-10-24] MEDS: PIPERACILLIN/TAZOBACTAM 3,375 MG in SODIUM CHLORIDE 0.9% 100 ML IV SCH ×3 (04:59→21:59)
[2021-10-24] MEDS: SODIUM CHLOR 0.9% KCL 20 MEQ 20 MEQ/1,000 ML BAG IV SCH ×4 (07:14→21:00)
[2021-10-24] MEDS: TAMSULOSIN 0.4 MG CAPSULE PO SCH ×2 (08:28→22:25)
[2021-10-24] MEDS: POLYETHYLENE GLYCOL POWDER 17 GM PACK PO SCH ×2 (08:28→22:26)
[2021-10-24] MEDS: ESCITALOPRAM 10 MG TABLET PO SCH (08:28)
[2021-10-24] MEDS: PANTOPRAZOLE 40 MG TABLET PO SCH (08:28)
[2021-10-24] MEDS: INSULIN LISPRO 100 UNIT/ML SUBCUT SCH ×4 (08:29→21:59)
[2021-10-24 12:25] LABS: Basophils % 0.2 % (0.0-0.8); Eosinophils # 0.2 10*3/uL (0.0-0.87); Eosinophils % 2.1 % (0.00-10.9); Hematocrit 27.1 VOL% (42.0-52.0); Hemoglobin 7.6 GM/DL (14.0-18.0); Immature Granulocytes % 2.1 %; Immature Granulocytes Absolute 0.23 #; Lymphocytes # 0.8 10*3/uL (1.4-4.0); Lymphocytes % 7.5 % (21.2-54.2); Mean Corpuscular Volume 69.5 FL (87-102); Mean Platelet Volume 9.5 FL (9.6-12.0); Monocytes % 8.9 % (1.7-12.7); NRBC # 0.02 10*3/uL; Neutrophils % 79.2 % (38.7-73.9); Platelet Count 260 T/CUMM (130-400); Red Cell Distribution Width 19.2 % (9.3-17.3); White Blood Count 11.2 T/CUMM (4-12)
[2021-10-24 12:26] LABS: Calcium 7.7 MG/DL (8.5-10.1); Osmolality,Calculated 266.4 MOS/KG (273-304); Potassium 4.3 MMOL/L (3.5-5.1)
[2021-10-25] MEDS: HYDROmorphone 1 MG/1 ML SYRINGE IV PRN ×6 (02:11→22:53)
[2021-10-25] MEDS: PIPERACILLIN/TAZOBACTAM 3,375 MG in SODIUM CHLORIDE 0.9% 100 ML IV SCH ×3 (04:31→22:35)
[2021-10-25] MEDS: INSULIN LISPRO 100 UNIT/ML SUBCUT SCH ×4 (08:40→22:32)
[2021-10-25] MEDS: TAMSULOSIN 0.4 MG CAPSULE PO SCH ×2 (08:41→22:33)
[2021-10-25] MEDS: ESCITALOPRAM 10 MG TABLET PO SCH (08:41)
[2021-10-25] MEDS: POLYETHYLENE GLYCOL POWDER 17 GM PACK PO SCH ×2 (08:41→23:30)
[2021-10-25] MEDS: PANTOPRAZOLE 40 MG TABLET PO SCH (08:41)
[2021-10-25 09:07] LABS: Calcium 8.1 MG/DL (8.5-10.1); Osmolality,Calculated 261.7 MOS/KG (273-304); Potassium 4.3 MMOL/L (3.5-5.1)
[2021-10-25 09:09] LABS: Basophils % 0.3 % (0.0-0.8); Eosinophils # 0.3 10*3/uL (0.0-0.87); Eosinophils % 2.7 % (0.00-10.9); Hematocrit 26.9 VOL% (42.0-52.0); Hemoglobin 7.5 GM/DL (14.0-18.0); Immature Granulocytes % 1.7 %; Lymphocytes # 0.9 10*3/uL (1.4-4.0); Lymphocytes % 7.6 % (21.2-54.2); Mean Corpuscular HGB Conc 27.9 GM/DL (32-36); Mean Corpuscular Volume 70.1 FL (87-102); Monocytes % 8.7 % (1.7-12.7); NRBC # 0.02 10*3/uL; Platelet Count 286 T/CUMM (130-400); Red Blood Count 3.84 MC/CUMM (3.8-5.5); Red Cell Distribution Width 19.9 % (9.3-17.3); White Blood Count 11.5 T/CUMM (4-12)
[2021-10-25 09:12] LABS: Hypochromia Slight; Microcytosis Slight
[2021-10-25] MEDS: SODIUM CHLOR 0.9% KCL 20 MEQ 20 MEQ/1,000 ML BAG IV SCH ×2 (13:11→14:22)
[2021-10-26] MEDS: SODIUM CHLOR 0.9% KCL 20 MEQ 20 MEQ/1,000 ML BAG IV SCH ×2 (02:25→10:25)
[2021-10-26] MEDS: HYDROmorphone 1 MG/1 ML SYRINGE IV PRN ×2 (03:46→08:26)
[2021-10-26] MEDS: PIPERACILLIN/TAZOBACTAM 3,375 MG in SODIUM CHLORIDE 0.9% 100 ML IV SCH ×3 (04:50→21:18)
[2021-10-26 06:32] LABS: Calcium 7.7 MG/DL (8.5-10.1); Osmolality,Calculated 264.5 MOS/KG (273-304); Potassium 4.4 MMOL/L (3.5-5.1)
[2021-10-26 06:45] LABS: Basophils % 0.2 % (0.0-0.8); Eosinophils # 0.3 10*3/uL (0.0-0.87); Eosinophils % 2.7 % (0.00-10.9); Hematocrit 26.6 VOL% (42.0-52.0); Hemoglobin 7.4 GM/DL (14.0-18.0); Immature Granulocytes % 1.7 %; Immature Granulocytes Absolute 0.17 #; Lymphocytes # 0.7 10*3/uL (1.4-4.0); Lymphocytes % 7.1 % (21.2-54.2); Mean Corpuscular HGB Conc 27.8 GM/DL (32-36); Mean Corpuscular Volume 69.1 FL (87-102); Mean Platelet Volume 9.6 FL (9.6-12.0); Monocytes % 9.2 % (1.7-12.7); Neutrophils % 79.1 % (38.7-73.9); Platelet Count 272 T/CUMM (130-400); Red Blood Count 3.85 MC/CUMM (3.8-5.5); Red Cell Distribution Width 19.7 % (9.3-17.3); White Blood Count 10.3 T/CUMM (4-12)
[2021-10-26 07:15] LABS: Hypochromia 1+; Microcytosis 1+
[2021-10-26 07:16] LABS: Ovalocytes Slight; Platelet Estimate Normal; Tear Drop Cells Slight
[2021-10-26] MEDS: INSULIN LISPRO 100 UNIT/ML SUBCUT SCH ×4 (08:24→21:20)
[2021-10-26] MEDS: POLYETHYLENE GLYCOL POWDER 17 GM PACK PO SCH ×2 (08:25→21:20)
[2021-10-26] MEDS: ESCITALOPRAM 10 MG TABLET PO SCH (08:25)
[2021-10-26] MEDS: TAMSULOSIN 0.4 MG CAPSULE PO SCH ×2 (08:25→21:18)
[2021-10-26] MEDS: PANTOPRAZOLE 40 MG TABLET PO SCH (08:25)
[2021-10-26] MEDS: ONDANSETRON 4 MG/2 ML VIAL IV PRN ×2 (17:20→21:25)
[2021-10-26] MEDS: SPIRONOLACTONE 50 MG TABLET PO SCH (21:17)
[2021-10-27] MEDS: ONDANSETRON 4 MG/2 ML VIAL IV PRN ×2 (02:02→19:58)
[2021-10-27] MEDS: INSULIN LISPRO 100 UNIT/ML SUBCUT SCH ×4 (08:37→20:08)
[2021-10-27] MEDS: POLYETHYLENE GLYCOL POWDER 17 GM PACK PO SCH ×2 (08:37→20:12)
[2021-10-27] MEDS: PANTOPRAZOLE 40 MG TABLET PO SCH (08:38)
[2021-10-27] MEDS: ESCITALOPRAM 10 MG TABLET PO SCH (08:38)
[2021-10-27] MEDS: SPIRONOLACTONE 50 MG TABLET PO SCH ×2 (08:38→20:01)
[2021-10-27] MEDS: TAMSULOSIN 0.4 MG CAPSULE PO SCH ×2 (08:38→20:01)
[2021-10-27 13:53] LABS: Neutrophils,Peritoneal Fluid 18 %
[2021-10-27 13:55] LABS: RBC,Peritoneal Fluid 1015 T/CUMM
[2021-10-28] MEDS: ONDANSETRON 4 MG/2 ML VIAL IV PRN (04:43)
[2021-10-28] MEDS: POLYETHYLENE GLYCOL POWDER 17 GM PACK PO SCH ×2 (08:38→21:16)
[2021-10-28] MEDS: INSULIN LISPRO 100 UNIT/ML SUBCUT SCH ×4 (08:38→21:16)
[2021-10-28] MEDS: KETOROLAC 30 MG/1 ML VIAL IV SCH ×3 (08:39→21:14)
[2021-10-28] MEDS: TAMSULOSIN 0.4 MG CAPSULE PO SCH ×2 (08:39→21:14)
[2021-10-28] MEDS: SPIRONOLACTONE 50 MG TABLET PO SCH ×2 (08:39→21:14)
[2021-10-28] MEDS: PANTOPRAZOLE 40 MG TABLET PO SCH (08:39)
[2021-10-28] MEDS: ESCITALOPRAM 10 MG TABLET PO SCH (08:39)
[2021-10-28] MEDS: HYDROmorphone 1 MG/1 ML SYRINGE IV PRN ×3 (08:40→22:25)
[2021-10-29] MEDS: KETOROLAC 30 MG/1 ML VIAL IV SCH ×2 (04:22→08:32)
[2021-10-29] MEDS: INSULIN LISPRO 100 UNIT/ML SUBCUT SCH ×2 (07:51→12:20)
[2021-10-29] MEDS: PANTOPRAZOLE 40 MG TABLET PO SCH (08:30)
[2021-10-29] MEDS: TAMSULOSIN 0.4 MG CAPSULE PO SCH (08:30)
[2021-10-29] MEDS: SPIRONOLACTONE 50 MG TABLET PO SCH (08:30)
[2021-10-29] MEDS: ESCITALOPRAM 10 MG TABLET PO SCH (08:30)
[2021-10-29] MEDS: POLYETHYLENE GLYCOL POWDER 17 GM PACK PO SCH (08:30)
[2021-10-29] MEDS: HYDROmorphone 1 MG/1 ML SYRINGE IV PRN (10:06)
[2021-10-29] MEDS ORDERED: FUROSEMIDE 20 MG TABLET PO SCH (11:00)
[2021-10-29 12:20] VITALS: BP 119/59
[2021-10-29] MEDS ORDERED: HEPARIN LOCK FLUSH 500 UNIT/5 ML SYRINGE IV ONE (13:03)
[2021-10-29] MEDS ORDERED: SPIRONOLACTONE 50 MG TABLET PO SCH (21:00)
== END 2021-10-29 14:00 | disposition home health service (06) | DRG 445 ==
LOC: N.ED 09:26 → N.EDINP 11:23 → N.5E 15:48
PROVIDERS: ADMIT Surgery; ATTEND Surgery

== ENCOUNTER 2021-11-08 14:31 | Inpatient (IN) ==
[2021-11-08] MEDS ORDERED: ONDANSETRON 4 MG/2 ML VIAL IV PRN (16:13)
[2021-11-08] MEDS ORDERED: PROMETHAZINE 25 MG/1 ML VIAL IM PRN (16:13)
[2021-11-08] MEDS: LACTATED RINGERS 1,000 ML IV SCH (16:54)
[2021-11-08 17:11] LABS: Basophils % 0.1 % (0.0-0.8); Eosinophils # 0.1 10*3/uL (0.0-0.87); Eosinophils % 1.5 % (0.00-10.9); Hematocrit 29.2 VOL% (42.0-52.0); Hemoglobin 8.2 GM/DL (14.0-18.0); Immature Granulocytes % 0.4 %; Immature Granulocytes Absolute 0.03 #; Lymphocytes # 0.6 10*3/uL (1.4-4.0); Mean Corpuscular HGB Conc 28.1 GM/DL (32-36); Mean Corpuscular Volume 68.9 FL (87-102); Mean Platelet Volume 10.3 FL (9.6-12.0); Monocytes # 0.8 10*3/uL (0.11-0.8); Monocytes % 11.2 % (1.7-12.7); Neutrophils % 77.8 % (38.7-73.9); Platelet Count 227 T/CUMM (130-400); Red Blood Count 4.24 MC/CUMM (3.8-5.5); Red Cell Distribution Width 20.4 % (9.3-17.3); White Blood Count 6.7 T/CUMM (4-12)
[2021-11-08 17:27] LABS: Albumin 1.7 G/DL (3.4-5.0); Bilirubin,Total 0.9 MG/DL (0.20-1.00); Osmolality,Calculated 273.8 MOS/KG (273-304); Potassium 4.8 MMOL/L (3.5-5.1); Total Protein 7.6 G/DL (6.4-8.2)
[2021-11-08] MEDS: HYDROmorphone 1 MG/1 ML SYRINGE IV PRN ×2 (17:45→21:40)
[2021-11-09] MEDS: LACTATED RINGERS 1,000 ML IV SCH ×3 (00:20→17:20)
[2021-11-09] MEDS: HYDROmorphone 1 MG/1 ML SYRINGE IV PRN ×4 (03:48→21:11)
[2021-11-09 05:21] LABS: Albumin 1.5 G/DL (3.4-5.0); Bilirubin,Total 0.8 MG/DL (0.20-1.00); Calcium 7.6 MG/DL (8.5-10.1); Osmolality,Calculated 268.1 MOS/KG (273-304); Potassium 4.1 MMOL/L (3.5-5.1); Total Protein 6.5 G/DL (6.4-8.2)
[2021-11-09 05:43] LABS: Basophils % 0.2 % (0.0-0.8); Eosinophils # 0.3 10*3/uL (0.0-0.87); Eosinophils % 3.9 % (0.00-10.9); Hematocrit 25.5 VOL% (42.0-52.0); Hemoglobin 7.1 GM/DL (14.0-18.0); Immature Granulocytes % 0.3 %; Immature Granulocytes Absolute 0.02 #; Lymphocytes # 0.8 10*3/uL (1.4-4.0); Lymphocytes % 12.2 % (21.2-54.2); Mean Corpuscular HGB Conc 27.8 GM/DL (32-36); Mean Corpuscular Volume 68.2 FL (87-102); Mean Platelet Volume 9.8 FL (9.6-12.0); Monocytes # 0.8 10*3/uL (0.11-0.8); Monocytes % 12.8 % (1.7-12.7); Neutrophils % 70.6 % (38.7-73.9); Platelet Count 183 T/CUMM (130-400); Red Blood Count 3.74 MC/CUMM (3.8-5.5); Red Cell Distribution Width 20.2 % (9.3-17.3); White Blood Count 6.5 T/CUMM (4-12)
[2021-11-09 06:01] LABS: Hypochromia 1+; Microcytosis 1+; Ovalocytes Slight
[2021-11-09 06:02] LABS: Platelet Estimate Adequate; Polychromasia Slight; Tear Drop Cells Slight
[2021-11-09] MEDS ORDERED: ONDANSETRON ODT 4 MG TABLET PO PRN (07:16)
[2021-11-09] MEDS ORDERED: GLUCAGON 1 MG VIAL IM PRN (07:25)
[2021-11-09] MEDS ORDERED: DEXTROSE 10% 250 ML BAG IV PRN (07:25)
[2021-11-09] MEDS: ESCITALOPRAM 10 MG TABLET PO SCH (09:02)
[2021-11-09] MEDS: DOCUSATE SODIUM 100 MG CAPSULE PO SCH ×2 (09:02→21:10)
[2021-11-09] MEDS: FUROSEMIDE 20 MG TABLET PO SCH (09:02)
[2021-11-09] MEDS: TAMSULOSIN 0.4 MG CAPSULE PO SCH ×2 (09:02→21:10)
[2021-11-09] MEDS: metFORMIN 500 MG TABLET PO SCH ×2 (09:02→17:18)
[2021-11-09] MEDS: SPIRONOLACTONE 25 MG TABLET PO SCH ×2 (09:03→21:10)
[2021-11-09] MEDS: INSULIN REGULAR 100 UNIT/ML SUBCUT SCH ×4 (10:00→21:46)
[2021-11-10] MEDS: HYDROmorphone 1 MG/1 ML SYRINGE IV PRN ×6 (03:11→23:28)
[2021-11-10] MEDS: LACTATED RINGERS 1,000 ML IV SCH (04:38)
[2021-11-10] MEDS: PIPERACILLIN/TAZOBACTAM 3,375 MG in SODIUM CHLORIDE 0.9% 100 ML IV SCH ×3 (08:21→23:12)
[2021-11-10] MEDS: metFORMIN 500 MG TABLET PO SCH ×2 (09:08→16:51)
[2021-11-10] MEDS: SPIRONOLACTONE 25 MG TABLET PO SCH ×2 (09:09→20:44)
[2021-11-10] MEDS: DOCUSATE SODIUM 100 MG CAPSULE PO SCH ×2 (09:10→20:44)
[2021-11-10] MEDS: FUROSEMIDE 20 MG TABLET PO SCH (09:11)
[2021-11-10] MEDS: ESCITALOPRAM 10 MG TABLET PO SCH (09:12)
[2021-11-10] MEDS: TAMSULOSIN 0.4 MG CAPSULE PO SCH ×2 (09:12→20:44)
[2021-11-10] MEDS: INSULIN REGULAR 100 UNIT/ML SUBCUT SCH ×4 (10:24→20:48)
[2021-11-11] MEDS: HYDROmorphone 1 MG/1 ML SYRINGE IV PRN ×5 (04:59→20:55)
[2021-11-11] MEDS: INSULIN REGULAR 100 UNIT/ML SUBCUT SCH ×4 (07:28→20:56)
[2021-11-11 08:21] LABS: Basophils % 0.2 % (0.0-0.8); Eosinophils # 0.1 10*3/uL (0.0-0.87); Eosinophils % 2.3 % (0.00-10.9); Hematocrit 25.4 VOL% (42.0-52.0); Immature Granulocytes % 0.4 %; Immature Granulocytes Absolute 0.02 #; Lymphocytes # 0.5 10*3/uL (1.4-4.0); Lymphocytes % 9.2 % (21.2-54.2); Mean Corpuscular Volume 67.7 FL (87-102); Mean Platelet Volume 9.4 FL (9.6-12.0); Monocytes # 0.7 10*3/uL (0.11-0.8); Monocytes % 13.1 % (1.7-12.7); Neutrophils % 74.8 % (38.7-73.9); Platelet Count 181 T/CUMM (130-400); Red Blood Count 3.75 MC/CUMM (3.8-5.5); Red Cell Distribution Width 20.4 % (9.3-17.3); White Blood Count 5.3 T/CUMM (4-12)
[2021-11-11] MEDS: SPIRONOLACTONE 25 MG TABLET PO SCH ×2 (08:21→20:53)
[2021-11-11] MEDS: metFORMIN 500 MG TABLET PO SCH ×2 (08:21→16:46)
[2021-11-11] MEDS: TAMSULOSIN 0.4 MG CAPSULE PO SCH ×2 (08:22→20:53)
[2021-11-11] MEDS: ESCITALOPRAM 10 MG TABLET PO SCH (08:22)
[2021-11-11] MEDS: FUROSEMIDE 20 MG TABLET PO SCH (08:22)
[2021-11-11] MEDS: DOCUSATE SODIUM 100 MG CAPSULE PO SCH ×2 (08:22→20:53)
[2021-11-11] MEDS: PIPERACILLIN/TAZOBACTAM 3,375 MG in SODIUM CHLORIDE 0.9% 100 ML IV SCH ×2 (08:23→15:15)
[2021-11-11 08:24] LABS: Hemoglobin 7.1 GM/DL (14.0-18.0)
[2021-11-11 08:26] LABS: Hypochromia 2+; Microcytosis 1+; Ovalocytes Slight; Polychromasia Slight
[2021-11-11 08:29] LABS: Platelet Estimate Adequate
[2021-11-11 10:43] LABS: INR 1.3; PT Patient Result 14.2 SECS (10.1-12.1); Partial Thromboplastin Time 31.9 SECS (23.7-32.9)
[2021-11-11] MEDS ORDERED: SODIUM HYPOCHLORITE 0.25% IRR 1 APPLIC in IV BAG 1 EACH IRRIG PRN (11:00)
[2021-11-11] MEDS: PANTOPRAZOLE 40 MG VIAL IV SCH (20:53)
[2021-11-11] MEDS: PROMETHAZINE 25 MG TABLET PO PRN ×2 (22:48→22:49)
[2021-11-12] MEDS: PIPERACILLIN/TAZOBACTAM 3,375 MG in SODIUM CHLORIDE 0.9% 100 ML IV SCH ×2 (00:28→12:21)
[2021-11-12 07:44] LABS: Basophils % 0.2 % (0.0-0.8); Eosinophils # 0.1 10*3/uL (0.0-0.87); Eosinophils % 3.2 % (0.00-10.9); Hematocrit 27.7 VOL% (42.0-52.0); Hemoglobin 7.6 GM/DL (14.0-18.0); Immature Granulocytes % 0.5 %; Immature Granulocytes Absolute 0.02 #; Lymphocytes # 0.4 10*3/uL (1.4-4.0); Lymphocytes % 9.7 % (21.2-54.2); Mean Corpuscular HGB Conc 27.4 GM/DL (32-36); Mean Corpuscular Volume 69.3 FL (87-102); Mean Platelet Volume 9.7 FL (9.6-12.0); Monocytes # 0.7 10*3/uL (0.11-0.8); Monocytes % 15.2 % (1.7-12.7); Neutrophils % 71.2 % (38.7-73.9); Platelet Count 170 T/CUMM (130-400); Red Cell Distribution Width 20.5 % (9.3-17.3); White Blood Count 4.3 T/CUMM (4-12)
[2021-11-12] MEDS ORDERED: LACTATED RINGERS 1,000 ML IV SCH (08:00)
[2021-11-12] MEDS: HYDROmorphone 1 MG/1 ML SYRINGE IV PRN ×2 (08:15→12:21)
[2021-11-12 08:34] LABS: Calcium 7.7 MG/DL (8.5-10.1); Potassium 3.8 MMOL/L (3.5-5.1)
[2021-11-12] MEDS: INSULIN REGULAR 100 UNIT/ML SUBCUT SCH ×2 (08:40→12:32)
[2021-11-12] MEDS ORDERED: propofoL 200 MG/20 ML VIAL IV ONE (09:14)
[2021-11-12 11:58] VITALS: BP 122/64
[2021-11-12] MEDS: metFORMIN 500 MG TABLET PO SCH (12:21)
[2021-11-12] MEDS: PANTOPRAZOLE 40 MG VIAL IV SCH (12:21)
[2021-11-12] MEDS: FUROSEMIDE 20 MG TABLET PO SCH (12:22)
[2021-11-12] MEDS: ESCITALOPRAM 10 MG TABLET PO SCH (12:22)
[2021-11-12] MEDS: DOCUSATE SODIUM 100 MG CAPSULE PO SCH (12:22)
[2021-11-12] MEDS: TAMSULOSIN 0.4 MG CAPSULE PO SCH (12:22)
[2021-11-12] MEDS: SPIRONOLACTONE 25 MG TABLET PO SCH (12:23)
== END 2021-11-12 15:45 | DRG 863 ==
LOC: N.3E 14:44
PROVIDERS: ADMIT Surgery; ATTEND Surgery

== ENCOUNTER 2022-03-08 11:17 | Inpatient (IN) ==
[2022-03-08 12:12] LABS: Basophils % 0.3 % (0.0-0.8); Eosinophils # 0.1 10*3/uL (0.0-0.87); Eosinophils % 4.8 % (0.00-10.9); Hematocrit 26.1 VOL% (42.0-52.0); Hemoglobin 6.8 GM/DL (14.0-18.0); Immature Granulocytes % 0.3 %; Immature Granulocytes Absolute 0.01 #; Lymphocytes # 0.6 10*3/uL (1.4-4.0); Lymphocytes % 21.5 % (21.2-54.2); Mean Corpuscular HGB Conc 26.1 GM/DL (32-36); Mean Corpuscular Volume 67.6 FL (87-102); Mean Platelet Volume 9.8 FL (9.6-12.0); Monocytes # 0.3 10*3/uL (0.11-0.8); Neutrophils % 64.1 % (38.7-73.9); Platelet Count 152 T/CUMM (130-400); Red Blood Count 3.86 MC/CUMM (3.8-5.5); Red Cell Distribution Width 18.2 % (9.3-17.3); White Blood Count 2.9 T/CUMM (4-12)
[2022-03-08] MEDS ORDERED: SODIUM CHLORIDE 0.9% 1,000 ML IV STA (12:12)
[2022-03-08] MEDS ORDERED: HYDROmorphone 1 MG/1 ML SYRINGE IV STA (12:13)
[2022-03-08] MEDS ORDERED: ONDANSETRON 4 MG/2 ML VIAL IV STA (12:13)
[2022-03-08 12:16] LABS: Bilirubin,Total 0.6 MG/DL (0.20-1.00); Osmolality,Calculated 282.8 MOS/KG (273-304); Total Protein 8.3 G/DL (6.4-8.2)
[2022-03-08 12:21] LABS: Platelet Estimate Normal
[2022-03-08 12:22] LABS: Anisocytosis 1+; Hypochromia 1+; Ovalocytes Few
[2022-03-08 14:25] LABS: Mucus,Urine Occasional /LPF (Occasional); RBC,Urine <1 /HPF (0-4)
[2022-03-08 14:26] LABS: Bilirubin,Urine Negative (Negative); Blood, Urine Trace mg/dL (Negative); Glucose,Urine (UA) 250 mg/dL (Negative); Ketones,Urine Negative (Negative); Nitrite,Urine Negative (Negative); Protein,Urine Negative (Negative); Urine Appearance Clear (Clear); Urine Color Yellow (Yellow); Urine Specific Gravity 1.015 (1.001-1.035); Urine Urobilinogen 0.2 eU/dL (<2.0)
[2022-03-08] MEDS ORDERED: PANTOPRAZOLE INJ 80 MG in SODIUM CHLORIDE 0.9% 100 ML IV ONE (15:07)
[2022-03-08] MEDS ORDERED: OCTREOTIDE 100 MCG/ML SYRINGE IV STA (15:07)
[2022-03-08] MEDS ORDERED: SODIUM CHLORIDE 0.9% 1,000 ML IV PRN (15:10)
[2022-03-08] MEDS ORDERED: PANTOPRAZOLE 40 MG VIAL IV ONE (15:24)
[2022-03-08] MEDS ORDERED: PROMETHAZINE 25 MG TABLET PO PRN (15:52)
[2022-03-08] MEDS ORDERED: DEXTROSE 10% 250 ML BAG IV PRN (15:57)
[2022-03-08] MEDS ORDERED: GLUCAGON 1 MG VIAL IM PRN (15:57)
[2022-03-08] MEDS: oxyCODONE/ACETAMINOPHEN 5-325 MG TABLET PO PRN (16:21)
[2022-03-08] MEDS: PANTOPRAZOLE INJ 200 MG in SODIUM CHLORIDE 0.9% 250 ML IV SCH (16:43)
[2022-03-08] MEDS: INSULIN LISPRO 100 UNIT/ML SUBCUT SCH ×2 (19:24→22:14)
[2022-03-08] MEDS ORDERED: OCTREOTIDE 100 MCG/ML SYRINGE IV ONE ×2 (20:00→21:30)
[2022-03-08] MEDS ORDERED: HYDROCORTISONE 100 MG VIAL IV ONE (22:16)
[2022-03-08] MEDS ORDERED: diphenhydrAMINE 50 MG/1 ML VIAL IV ONE (22:17)
[2022-03-08] MEDS: TAMSULOSIN 0.4 MG CAPSULE PO SCH (22:17)
[2022-03-08] MEDS: OCTREOTIDE 500 MCG in SODIUM CHLORIDE 0.9% 100 ML IV SCH (22:32)
[2022-03-08] MEDS: SODIUM CHLORIDE 0.9% 1,000 ML IV SCH (23:52)
[2022-03-09] MEDS ORDERED: HYDROmorphone 1 MG/1 ML SYRINGE IV ONE (01:42)
[2022-03-09 05:05] LABS: Basophils % 0.4 % (0.0-0.8); Eosinophils % 0.4 % (0.00-10.9); Immature Granulocytes % 0.8 %; Immature Granulocytes Absolute 0.02 #; Lymphocytes # 0.4 10*3/uL (1.4-4.0); Lymphocytes % 16.5 % (21.2-54.2); Mean Corpuscular HGB Conc 27.7 GM/DL (32-36); Mean Corpuscular Volume 68.3 FL (87-102); Monocytes # 0.1 10*3/uL (0.11-0.8); Monocytes % 4.1 % (1.7-12.7); Neutrophils % 77.8 % (38.7-73.9); Platelet Count 144 T/CUMM (130-400); Red Blood Count 4.23 MC/CUMM (3.8-5.5); Red Cell Distribution Width 19.3 % (9.3-17.3); White Blood Count 2.7 T/CUMM (4-12)
[2022-03-09 05:12] LABS: Hematocrit 28.9 VOL% (42.0-52.0)
[2022-03-09 05:25] LABS: Osmolality,Calculated 280.7 MOS/KG (273-304); Potassium 4.5 MMOL/L (3.5-5.1)
[2022-03-09 05:28] LABS: Anisocytosis 1+; Hypochromia 1+; Microcytosis 1+
[2022-03-09 05:29] LABS: Ovalocytes Slight; Platelet Estimate Adequate; Target Cells Slight
[2022-03-09 05:30] LABS: Folate 5.64 NG/ML (5.38-24.0); Vitamin B12 552 PG/ML (211-911)
[2022-03-09] MEDS: SODIUM CHLORIDE 0.9% 1,000 ML IV SCH ×2 (05:40→15:37)
[2022-03-09 05:59] LABS: % Iron Saturation 10.8 % (18-50); Ferritin 6.2 ng/mL (26-388)
[2022-03-09 07:28] LABS: Sedimentation Rate-Westergren 53 MM/HR (0-15)
[2022-03-09] MEDS: oxyCODONE/ACETAMINOPHEN 5-325 MG TABLET PO PRN (08:00)
[2022-03-09 08:54] LABS: INR 1.1; PT Patient Result 12.4 SECS (10.1-12.1); Partial Thromboplastin Time 27.6 SECS (23.7-32.9)
[2022-03-09] MEDS: TAMSULOSIN 0.4 MG CAPSULE PO SCH ×2 (09:13→21:48)
[2022-03-09] MEDS: ESCITALOPRAM 10 MG TABLET PO SCH (09:13)
[2022-03-09] MEDS: INSULIN LISPRO 100 UNIT/ML SUBCUT SCH ×4 (09:13→21:48)
[2022-03-09] MEDS: OCTREOTIDE 500 MCG in SODIUM CHLORIDE 0.9% 100 ML IV SCH ×2 (09:15→18:54)
[2022-03-09 09:39] LABS: Hemoglobin A1 (Alkaline) 98.5 % (96.5-98.5); Hemoglobin A2 (Alkaline) 1.5 % (1.5-3.5)
[2022-03-09] MEDS ORDERED: BISACODYL 5 MG TABLET PO ONE (12:00)
[2022-03-09] MEDS ORDERED: SODIUM CHLORIDE 0.9% 1,000 ML IV PRN (15:36)
[2022-03-09] MEDS: PANTOPRAZOLE INJ 200 MG in SODIUM CHLORIDE 0.9% 250 ML IV SCH (15:37)
[2022-03-09] MEDS ORDERED: POLYETHYLENE GLYCOL POWDER 255 GM BOTTLE PO ONE (18:00)
[2022-03-09] MEDS ORDERED: MAGNESIUM CITRATE 300 ML BOTTLE PO ONE (21:00)
[2022-03-09] MEDS: HYDROmorphone 1 MG/1 ML SYRINGE IV PRN (23:32)
[2022-03-10] MEDS: SODIUM CHLORIDE 0.9% 1,000 ML IV SCH ×2 (04:06→18:33)
[2022-03-10] MEDS: HYDROmorphone 1 MG/1 ML SYRINGE IV PRN ×5 (05:36→23:43)
[2022-03-10 05:46] LABS: INR 1.1; PT Patient Result 12.3 SECS (10.1-12.1)
[2022-03-10 05:55] LABS: Osmolality,Calculated 279.4 MOS/KG (273-304); Potassium 3.5 MMOL/L (3.5-5.1)
[2022-03-10 06:13] LABS: Basophils % 0.7 % (0.0-0.8); Eosinophils # 0.2 10*3/uL (0.0-0.87); Eosinophils % 5.9 % (0.00-10.9); Hematocrit 28.1 VOL% (42.0-52.0); Hemoglobin 7.8 GM/DL (14.0-18.0); Immature Granulocytes % 0.3 %; Immature Granulocytes Absolute 0.01 #; Lymphocytes # 0.7 10*3/uL (1.4-4.0); Lymphocytes % 23.5 % (21.2-54.2); Mean Corpuscular HGB Conc 27.8 GM/DL (32-36); Mean Corpuscular Volume 68.5 FL (87-102); Mean Platelet Volume 10.4 FL (9.6-12.0); Monocytes # 0.3 10*3/uL (0.11-0.8); Monocytes % 11.1 % (1.7-12.7); Neutrophils % 58.5 % (38.7-73.9); Platelet Count 159 T/CUMM (130-400); Red Cell Distribution Width 19.7 % (9.3-17.3); White Blood Count 3.1 T/CUMM (4-12)
[2022-03-10] MEDS: OCTREOTIDE 500 MCG in SODIUM CHLORIDE 0.9% 100 ML IV SCH (07:23)
[2022-03-10] MEDS: INSULIN LISPRO 100 UNIT/ML SUBCUT SCH ×4 (07:31→22:34)
[2022-03-10] MEDS: LACTATED RINGERS 1,000 ML IV SCH ×2 (08:28→10:06)
[2022-03-10] MEDS ORDERED: MIDAZOLAM 2 MG/2 ML VIAL ONE (08:33)
[2022-03-10] MEDS ORDERED: LIDOCAINE 2% 5 ML VIAL ONE (09:45)
[2022-03-10] MEDS ORDERED: ETOMIDATE 20 MG/10 ML VIAL IV ONE (09:45)
[2022-03-10] MEDS ORDERED: propofoL 200 MG/20 ML VIAL IV ONE (09:45)
[2022-03-10] MEDS ORDERED: KETAMINE 500 MG/10 ML VIAL ONE (09:46)
[2022-03-10] MEDS: ESCITALOPRAM 10 MG TABLET PO SCH (11:11)
[2022-03-10] MEDS: TAMSULOSIN 0.4 MG CAPSULE PO SCH ×2 (11:11→22:33)
[2022-03-10] MEDS: PANTOPRAZOLE INJ 200 MG in SODIUM CHLORIDE 0.9% 250 ML IV SCH (15:34)
[2022-03-10 19:36] LABS: Soluble Transf Receptor (sTfR) 22.3 mg/L (1.8 - 4.6)
[2022-03-11] MEDS: HYDROmorphone 1 MG/1 ML SYRINGE IV PRN (04:56)
[2022-03-11 05:55] LABS: Calcium 7.7 MG/DL (8.5-10.1); Osmolality,Calculated 275.7 MOS/KG (273-304)
[2022-03-11 06:16] LABS: Basophils % 0.3 % (0.0-0.8); Eosinophils # 0.2 10*3/uL (0.0-0.87); Eosinophils % 6.7 % (0.00-10.9); Hematocrit 28.8 VOL% (42.0-52.0); Immature Granulocytes % 0.3 %; Immature Granulocytes Absolute 0.01 #; Lymphocytes # 0.6 10*3/uL (1.4-4.0); Lymphocytes % 20.9 % (21.2-54.2); Mean Corpuscular HGB Conc 27.8 GM/DL (32-36); Mean Corpuscular Volume 68.1 FL (87-102); Mean Platelet Volume 9.5 FL (9.6-12.0); Monocytes # 0.4 10*3/uL (0.11-0.8); Monocytes % 12.1 % (1.7-12.7); Neutrophils % 59.7 % (38.7-73.9); Platelet Count 145 T/CUMM (130-400); Red Blood Count 4.23 MC/CUMM (3.8-5.5); Red Cell Distribution Width 20.1 % (9.3-17.3)
[2022-03-11 06:31] LABS: Hypochromia 1+; Microcytosis 1+; Ovalocytes Slight; Platelet Estimate Adequate; Polychromasia Slight
[2022-03-11] MEDS: oxyCODONE/ACETAMINOPHEN 5-325 MG TABLET PO PRN (09:51)
[2022-03-11] MEDS: TAMSULOSIN 0.4 MG CAPSULE PO SCH (09:51)
[2022-03-11] MEDS: ESCITALOPRAM 10 MG TABLET PO SCH (09:51)
[2022-03-11] MEDS: INSULIN LISPRO 100 UNIT/ML SUBCUT SCH ×2 (09:54→13:58)
[2022-03-11] MEDS: LACTATED RINGERS 1,000 ML IV SCH (09:54)
[2022-03-11 12:10] VITALS: BP 136/64
[2022-03-11] MEDS: SODIUM CHLORIDE 0.9% 1,000 ML IV SCH (12:18)
== END 2022-03-11 15:08 | disposition home health service (06) | DRG 378 ==
LOC: N.ED 11:17 → N.EDINP 15:05 → N.TELES 16:58
PROVIDERS: ADMIT Hospitalist; ATTEND Hospitalist

== ENCOUNTER 2022-04-06 14:59 | Inpatient (IN) ==
[2022-04-06] MEDS ORDERED: hydrALAZINE 20 MG/1 ML VIAL IV PRN (18:53)
[2022-04-06] MEDS ORDERED: ONDANSETRON 4 MG/2 ML VIAL IV PRN (18:53)
[2022-04-06] MEDS ORDERED: FUROSEMIDE 20 MG/2 ML VIAL IV PRN (19:07)
[2022-04-06] MEDS ORDERED: SODIUM CHLORIDE 0.9% 1,000 ML IV PRN (19:07)
[2022-04-06] MEDS: LACTATED RINGERS 1,000 ML IV SCH (19:41)
[2022-04-06 19:56] LABS: Hematocrit 22.8 VOL% (42.0-52.0)
[2022-04-06 20:00] LABS: Hemoglobin 6.3 GM/DL (14.0-18.0)
[2022-04-06] MEDS: MORPHINE 2 MG/1 ML SYRINGE IV PRN (20:41)
[2022-04-06] MEDS: PANTOPRAZOLE INJ 200 MG in SODIUM CHLORIDE 0.9% 250 ML IV SCH (20:45)
[2022-04-06] MEDS: ZALEPLON 5 MG CAPSULE PO PRN (23:45)
[2022-04-07] MEDS: INSULIN LISPRO 100 UNIT/ML SUBCUT SCH ×5 (00:50→23:57)
[2022-04-07 02:58] LABS: Immature Granulocytes % 0.3 %; Immature Granulocytes Absolute 0.01 #
[2022-04-07 03:14] LABS: Albumin 2.6 G/DL (3.4-5.0); Osmolality,Calculated 277.4 MOS/KG (273-304); Potassium 3.6 MMOL/L (3.5-5.1); Total Protein 7.6 G/DL (6.4-8.2)
[2022-04-07 03:18] LABS: Basophils % 0.6 % (0.0-0.8); Eosinophils # 0.2 10*3/uL (0.0-0.87); Eosinophils % 4.4 % (0.00-10.9); Hematocrit 25.2 VOL% (42.0-52.0); Lymphocytes # 0.8 10*3/uL (1.4-4.0); Lymphocytes % 22.4 % (21.2-54.2); Mean Corpuscular HGB Conc 27.4 GM/DL (32-36); Mean Corpuscular Volume 68.9 FL (87-102); Monocytes # 0.3 10*3/uL (0.11-0.8); Monocytes % 9.6 % (1.7-12.7); Neutrophils % 62.7 % (38.7-73.9); Platelet Count 155 T/CUMM (130-400); Red Blood Count 3.66 MC/CUMM (3.8-5.5); Red Cell Distribution Width 20.7 % (9.3-17.3); White Blood Count 3.44 T/CUMM (4-12)
[2022-04-07 03:19] LABS: Hemoglobin 6.9 GM/DL (14.0-18.0)
[2022-04-07 03:21] LABS: Hypochromia 1+; Microcytosis 1+
[2022-04-07 03:22] LABS: Ovalocytes Slight; Platelet Estimate Adequate
[2022-04-07] MEDS: LACTATED RINGERS 1,000 ML IV SCH ×2 (05:13→17:43)
[2022-04-07] MEDS ORDERED: SODIUM CHLORIDE 0.9% 1,000 ML IV PRN (05:54)
[2022-04-07 08:44] LABS: Hemoglobin 7.2 GM/DL (14.0-18.0)
[2022-04-07] MEDS: MORPHINE 2 MG/1 ML SYRINGE IV PRN ×3 (10:00→21:05)
[2022-04-07 18:32] LABS: Hematocrit 31.5 VOL% (42.0-52.0)
[2022-04-07 18:35] LABS: Hemoglobin 8.9 GM/DL (14.0-18.0)
[2022-04-07] MEDS: ZALEPLON 5 MG CAPSULE PO PRN (20:18)
[2022-04-07] MEDS: PROPRANOLOL 10 MG TABLET PO SCH (21:04)
[2022-04-07] MEDS: PANTOPRAZOLE INJ 200 MG in SODIUM CHLORIDE 0.9% 250 ML IV SCH (21:45)
[2022-04-08 01:02] LABS: Calcium 8.2 MG/DL (8.5-10.1); Osmolality,Calculated 272.7 MOS/KG (273-304); Potassium 3.8 MMOL/L (3.5-5.1)
[2022-04-08 01:18] LABS: Hemoglobin 7.9 GM/DL (14.0-18.0)
[2022-04-08] MEDS: LACTATED RINGERS 1,000 ML IV SCH ×2 (04:45→15:12)
[2022-04-08] MEDS: MORPHINE 2 MG/1 ML SYRINGE IV PRN ×2 (04:45→20:21)
[2022-04-08 05:43] LABS: Hypochromia 1+; Microcytosis 1+; Platelet Estimate Decreased
[2022-04-08 05:58] LABS: Basophils % 0.6 % (0.0-0.8); Eosinophils # 0.3 10*3/uL (0.0-0.87); Eosinophils % 7.8 % (0.00-10.9); Hematocrit 28.5 VOL% (42.0-52.0); Hemoglobin 7.9 GM/DL (14.0-18.0); Immature Granulocytes % 0.3 %; Immature Granulocytes Absolute 0.01 #; Lymphocytes # 0.7 10*3/uL (1.4-4.0); Lymphocytes % 19.5 % (21.2-54.2); Mean Corpuscular HGB Conc 27.7 GM/DL (32-36); Mean Corpuscular Volume 70.7 FL (87-102); Mean Platelet Volume 10.3 FL (9.6-12.0); Monocytes # 0.4 10*3/uL (0.11-0.8); Neutrophils % 60.8 % (38.7-73.9); Platelet Count 152 T/CUMM (130-400); Red Blood Count 4.03 MC/CUMM (3.8-5.5); White Blood Count 3.44 T/CUMM (4-12)
[2022-04-08] MEDS: INSULIN LISPRO 100 UNIT/ML SUBCUT SCH ×3 (06:19→17:03)
[2022-04-08] MEDS: PROPRANOLOL 10 MG TABLET PO SCH ×2 (09:46→20:20)
[2022-04-08 12:22] LABS: Hematocrit 29.4 VOL% (42.0-52.0); Hemoglobin 8.1 GM/DL (14.0-18.0)
[2022-04-08 18:32] LABS: Hemoglobin 8.1 GM/DL (14.0-18.0)
[2022-04-08] MEDS: ZALEPLON 5 MG CAPSULE PO PRN (20:19)
[2022-04-08] MEDS: PANTOPRAZOLE INJ 200 MG in SODIUM CHLORIDE 0.9% 250 ML IV SCH (23:10)
[2022-04-09] MEDS: INSULIN LISPRO 100 UNIT/ML SUBCUT SCH ×3 (00:50→12:29)
[2022-04-09] MEDS: MORPHINE 2 MG/1 ML SYRINGE IV PRN ×3 (00:50→09:43)
[2022-04-09] MEDS: LACTATED RINGERS 1,000 ML IV SCH ×2 (00:52→15:34)
[2022-04-09 01:14] LABS: Basophils % 0.6 % (0.0-0.8); Eosinophils # 0.2 10*3/uL (0.0-0.87); Eosinophils % 5.2 % (0.00-10.9); Hematocrit 26.4 VOL% (42.0-52.0); Hemoglobin 7.4 GM/DL (14.0-18.0); Immature Granulocytes % 0.3 %; Immature Granulocytes Absolute 0.01 #; Lymphocytes # 0.8 10*3/uL (1.4-4.0); Lymphocytes % 25.8 % (21.2-54.2); Mean Corpuscular Volume 69.5 FL (87-102); Mean Platelet Volume 9.4 FL (9.6-12.0); Monocytes # 0.3 10*3/uL (0.11-0.8); Monocytes % 10.1 % (1.7-12.7); Platelet Count 148 T/CUMM (130-400); Red Cell Distribution Width 21.2 % (9.3-17.3); White Blood Count 3.26 T/CUMM (4-12)
[2022-04-09 01:36] LABS: Calcium 7.7 MG/DL (8.5-10.1); Osmolality,Calculated 275.8 MOS/KG (273-304); Potassium 3.9 MMOL/L (3.5-5.1)
[2022-04-09] MEDS ORDERED: SODIUM CHLORIDE 0.9% 1,000 ML IV PRN (08:34)
[2022-04-09] MEDS: PROPRANOLOL 10 MG TABLET PO SCH (09:42)
[2022-04-09 16:50] LABS: Hematocrit 31.1 VOL% (42.0-52.0); Hemoglobin 8.9 GM/DL (14.0-18.0)
[2022-04-09 17:10] VITALS: BP 122/77
== END 2022-04-09 17:10 | disposition home health service (06) | DRG 378 ==
LOC: N.TELES → SUATTDRO 16:48 → OBSVTOIN 16:48
PROVIDERS: ADMIT Internal Medicine; ATTEND Internal Medicine